=== PATIENT | female | born 1985 | race Caucasian/White ===

== ENCOUNTER 2017-12-04 19:37 | Emergency (ER) | payer MEDICAID, SELFPAY ==
[2017-12-04 19:38] VITALS: BP 148/83; PULSE 87; RESP 18; TEMP 36.4; O2SAT 98; BMI 42.3
--- NOTE | 2017-12-04 19:53 | ED.VISSUMM ---
- ER Visit Summary Date of Service: 12/04/17 Chief Complaint: Flank pain History of Present Illness: The patient is a 31 F with frequent urinary tract infections presents with flank pain that started yesterday. She does have some urinary symptoms, dysuria and frequency. This feels like every urine infection that she has had in the past. No fever or chills. She has no abdominal pain. Physical Examination: Not appear in acute distress. She appears well and nontoxic she appears comfortable. Moist mucous membranes, no obvious facial deformity No C-spine tenderness supple neck. Regular rate and rhythm without any obvious murmurs Clear lungs bilaterally speaking in full sentences without any obvious respiratory distress Abdomen soft and nontender no guarding or rebound. She does have some CVA tenderness. Moves all extremities without any difficulty or pain. Skin does not show any obvious rashes or lesions, no trauma. Alert oriented ?3 with no gross focal deficit Emergency Department Course and Treatment: Patient has a cloudy urine. I do not see any blood. There may be microscopic hematuria however her signs and symptoms as well as clinical presentation point towards a urinary tract infection with possible renal involvement. I will treat as a pyelonephritis. She appears well and nontoxic. She is not writhing in pain and does not have significant pain therefore I will not do a CT for nephrolithiasis. She is still young and at this time I believe it is reasonable to wait to see if her symptoms improve before we do any kind of CAT scan. I will treat her empirically. I will send for culture and if she has fever chills or gets any worse needs to return right away. She understands this. At this time she has had this multiple times and feels just the same thus I am reasonably confident that outpatient treatment with no further workup is prudent and safe. Discharge stable condition Impression: [Urinary tract infection] This note was generated with [employer] dictation software. It may contain incorrect words, spelling, and punctuation that were not noted in review of the chart prior to signing ED Disposition - Plan for ED Patient: Disposition: Home or Assisted Living Chief Complaint: Flank Pain Instructions: ED Kidney Infec Female Prescriptions: Hydrocodone/Acetaminophen [[place] 5-325 Tablet] 1 - 2 ea PO 4X/DAY PRN PRN 3 Days #6 tab PRN Reason: Pain Smz/Tmp Ds [Bactrim Ds] 1 tab PO BID #14 tab Referrals: Magalis Curtis MD [Primary Care Provider] - 2 Days
[2017-12-04] MEDS: HYDROcodone Bitartrate/Apap 5/325 Tablet PO (19:57)
[2017-12-04] MEDS: Smz/Tmp Ds Tablet 1 TABLET PO (19:57)
[2017-12-04 19:58] VITALS: BP 140/75; PULSE 85; RESP 16; O2SAT 99
== END 2017-12-04 20:24 | disposition home or self-care (01) ==
PROVIDERS: Emergency Provider Emergency Medicine; Family Provider Internal Medicine; PCP Internal Medicine
DX: N12 Tubulo-interstitial nephritis, not specified as acute or chronic (principal); B96.89 Other specified bacterial agents as the cause of diseases classified elsewhere; Z87.440 Personal history of urinary (tract) infections; Z72.0 Tobacco use
CPT/HCPCS: 87086; 87088; 87186; 99283

== ENCOUNTER 2017-12-06 03:02 | Emergency (ER) | payer MEDICAID, SELFPAY ==
[2017-12-06 03:03] VITALS: PULSE 114; RESP 18; O2SAT 94
[2017-12-06 03:04] VITALS: BP 152/107; PULSE 91; RESP 18; TEMP 36.6; O2SAT 94; BMI 42.4
--- NOTE | 2017-12-06 03:17 | CT_ITS ---
STUDY: CT ABDOMEN AND PELVIS WITHOUT CONTRAST REASON FOR EXAM: Female, 31 years old. Kidney infection diagnosed yesterday on antibiotic, increased pain. History of cholecystectomy, appendectomy, hysterectomy, cervical cancer, bladder and urethral reconstruction RADIATION DOSAGE (If Supplied By Facility): CTDIvol = ( 22.42 ) mGy, DLP = ( 1114.48 ) mGycm TECHNIQUE: Transaxial 2.5 mm images were obtained from the dome of the diaphragm to the symphysis pubis without oral contrast, and without intravenous contrast. Sagittal and coronal images were reconstructed. This examination is limited for the evaluation of gastrointestinal, solid organs and vascular structures due to the lack of intravenous and oral contrast. There is obesity, the entirety of soft tissue is not imaged. Individualized dose optimization techniques were used for this CT. COMPARISON: CT abdomen pelvis 04/10/2017. 11/07/2016. 05/04/2016. FINDINGS: The visualized lung bases are unremarkable. The visualized portions of the heart are within normal limits. Normal liver. Stable enlargement right hepatic lobe 19.7 cm. There are surgical clips in the gallbladder fossa consistent with a prior cholecystectomy. Normal spleen. Punctate stable calcification along the pancreas head with otherwise normal pancreas. Normal bilateral adrenal glands. Normal right kidney. Normal left kidney. There is no obstructive uropathy, obstructive renal or ureteral calculi. Normal visualized stomach. Normal small intestine. Normal colon. There are surgical clips in the region of the appendix consistent with a prior appendectomy. Normal abdominal aorta. Normal inferior vena cava. Normal retroperitoneum. Decompressed urinary bladder. There is absence of the uterus consistent with a prior hysterectomy. There is low attenuation changes within the right adnexa, largest measures 2.2 x 2.4 x 2.3 cm. Left adnexa is not visualized. There is a stable tiny umbilical hernia containing fat. Normal osseous structures. CT/Abdomen/Pelvis without Cont IMPRESSION: There is no acute abdomen and pelvic pathology. There is no obstructive uropathy, obstructive renal or ureteral calculi. Right ovarian follicles decreased in size since previous exam. Other nonacute findings as outlined above. Electronically Signed: Iman Arndt MD at 4:25 EDT , Service support ,
[2017-12-06] MEDS: Ondansetron 4 MG/2 ML Vial IV (03:47)
[2017-12-06] MEDS: Morphine 4 MG/ML Syringe IV (03:47)
[2017-12-06] MEDS: 0.9% Normal Saline 1,000 ML 999 ML IV (03:47)
[2017-12-06 03:48] LABS: Bacteria 0 SEEN /hpf (None Seen); Mucous, Urine 0 SEEN /hpf (<or=2+); Red Blood Cells-Urine 0 SEEN /hpf (0-5); Squamous Epithelial Cells - UA 0 SEEN /hpf (5-10)
--- NOTE | 2017-12-06 03:49 | ED.VIS.GEN ---
History of Present Illness Chief Complaint: Flank Pain Informant: Patient Onset: Days - 2 Context: Gradual Onset Timing: Continuous, Waxes and wanes Quality: ache Location: R flank Current Severity: Moderate Maximum Severity: Severe Associated Symptoms: N/V, feels hot Narrative: Patient arrives by EMS because of intractable right-sided flank pain and lots of vomiting. She was seen here yesterday for the same pain, she had a hysterectomy that was complicated by a bladder/right ureter injury, the ureter had to be reconstructed onto her bladder him a she states. This occurred in 2014, and ever since she has had recurrent right-sided urinary tract infections that sometimes are in the upper urinary tract. She states these of the same symptoms she has had with prior infections. However, she has developed significantly worse, but similar, pain, as well as vomiting to the point of having trouble keeping the antibiotics down. She has had 2 doses of the Bactrim. No other new symptoms. - Past Medical History (1) Status post laparoscopic hysterectomy Status: Chronic (2) Ureter injury Status: Resolved Past Medical History - Allergies and Home Meds Allergies/Adverse Reactions: Allergies oxycodone HCl [From Percocet] Adverse Reaction (Verified 12/04/17 19:37) Nausea can take tylenol, Primary Care Physician: Magalis Curtis MD [Primary Care Provider] - 1-2 Days if not improving Surgical History: appendectomy, cholecystectomy, hysterectomy Smoking Status: Current every day smoker Drugs: None - Family History Maternal Family History: Reports: No pertinent history Paternal Family History: Reports: No pertinent history Review of Systems All systems negative except as indicated General: Reports: Chills, Malaise Cardiovascular: Denies: Chest pain Respiratory: Denies: Dyspnea, Cough Gastrointestinal: Reports: Abdominal pain, Nausea, Vomiting. Denies: Diarrhea, Hematochezia Genitourinary: Reports: Frequency. Denies: Dysuria, Hematuria Musculoskeletal: Reports: Back pain. Denies: Myalgias, Arthralgias, Neck pain, Extremity Pain Skin: Denies: Rash Neurological: Denies: Headache, Weakness, Parasthesia Physical Exam Vital Signs/Narrative: Vital Signs Temp Pulse Resp BP Pulse Ox 12/06/17 03:04 97.8 F 91 18 152/107 H 94 12/06/17 03:03 114 H 18 94 Inital Vital Signs reviewed: Yes General: Well nourished, Well developed, - - Well-appearing, NAD Head: Normocephalic, Atraumatic Eyes: Perrl, EOMI ENT: Moist mucous membranes, No rhinorrhea Neck: Supple, Nontender Cardiovascular: Regular rate, Regular rhythm, No murmurs. Negative for: Tachycardia Respiratory: No distress, CTA bilaterally, Chest nontender Abdomen: Soft, Nontender, Nondistended, Normal bowel sounds Back: Normal Inspection, CVA tenderness - Right. Negative on left.. Negative for: Spinal tenderness Extremities: Nontender, No edema Skin: Normal color, No rash Neurological: Alert, Oriented x3, Cranial nerves II-XII grossly intact, Normal Strength, Normal Sensation Psychological: Normal affect Diagnostic/Tx/Re-eval Impressions Abdomen/Pelvis CT 12/06/17 03:17 IMPRESSION: There is no acute abdomen and pelvic pathology. There is no obstructive uropathy, obstructive renal or ureteral calculi. Right ovarian follicles decreased in size since previous exam. Other nonacute findings as outlined above. Electronically Signed: Iman Arndt MD at 4:25 EDT , Service support , 12/06/17 03:17 Abdomen/Pelvis without Cont [CT] Stat Laboratory Results 12/06/17 12/06/17 12/06/17 Range/Units 03:45 03:45 03:45 WBC 14.6 H (4.4-11.0) K/mm3 RBC 4.40 (4.2-5.4) M/mm3 Hgb 13.0 (12.0-15.0) g/dl Hct 39.8 (37-47) % MCV 90.5 (81-99) fL MCH 29.5 (27.0-32.0) pg MCHC 32.7 (32-36) g/gl RDW 13.7 (11.6-14.6) % RDW Differential 45.4 H (35.1-43.9) fl Plt Count 264 (150-450) K/mm3 MPV 8.9 (6.2-12.0) fl Immature Gran % (Auto) 0.400 (0.0-0.9) % Neut % (Auto) 63.2 (47-70) % Lymph % (Auto) 30.4 (19-41) % [place] % (Auto) 4.7 (0-10) % Eos % (Auto) 1.1 (0-5) % Baso % (Auto) 0.2 (0-1) % Absolute Neuts (auto) 9.2 H (2.0-7.7) X10^3/uL Absolute Lymphs (auto) 4.43 (0.83-4.51) X10^3/ul Sodium 144 (136-145) mmol/L Potassium 3.5 (3.5-5.1) mmol/L Chloride 105 (98-107) mmol/L Carbon Dioxide 27.0 (21.0-32.0) mmol/L Anion Gap 12 (5-15) BUN 11 (7-18) mg/dL Creatinine 0.73 (0.55-1.02) mg/dL Estim Creat Clear Calc 94.65 ml/min Est GFR (MDRD) Af Amer 117 (>60) mL/min Est GFR (MDRD) Non-Af 97 (>60) mL/min BUN/Creatinine Ratio 15.0 (10-20) RATIO Glucose 107 H (74-106) mg/dL Calcium 8.9 (8.5-10.1) mg/dL Urine Color Yellow (Yellow) Urine Clarity Clear (Clear) Urine pH 6.5 (5.0 - 8.0) Ur Specific [place] 1.015 (1.002-1.030) Urine Protein Negative (Negative) mg/dl Urine Glucose (UA) Normal (Normal) mg/dl Urine Ketones Negative (Negative) mg/dl Urine Occult Blood 10 H (Negative) /ul Urine Nitrite Negative (Negative) Urine Bilirubin Negative (Negative) mg/dL Urine Urobilinogen Normal (Normal) mg/dl Ur Leukocyte Esterase 25 H (Negative) /ul Urine RBC 0 SEEN (0-5) /hpf Urine WBC 0-5 SEEN (0-5) /hpf Ur Squamous Epith Cells 0 SEEN (5-10) /hpf Urine Bacteria 0 SEEN (None Seen) /hpf Urine Mucus 0 SEEN (<or=2+) /hpf - Medical Decision Making She was treated empirically at her recent visit here without workup, given her history. Given the uncontrollable symptoms now, CT flank, urinalysis, basic labs obtained in addition to giving the patient IV fluids, Zofran, morphine. Urinalysis only shows 25 leukocyte esterase and 0-5 white blood cells. On discussing this with the patient, she states that her urine looks a lot better today than it did yesterday, it was dark yesterday. It is conceivable that she is starting to see improvement after 24 hours of antibiotics. She does have a leukocytosis which can be indicative of infection, although certainly not specific for that. Her CT is essentially unremarkable, showing no perinephric stranding or obstructive uropathy/hydronephrosis. After morphine, Zofran, IV fluid she is feeling much better. She is tolerating oral fluids. Will prescribe her a short course of analgesics and Zofran and advise that she continue the antibiotic until completed. She is comfortable with that plan. ED Disposition - Plan for ED Patient: Disposition: Home or Assisted Living Chief Complaint: Flank Pain Diagnosis: UTI (urinary tract infection), Acute right flank pain Instructions: ED Kidney Infec Female Prescriptions: Hydrocodone Bitart/[place]ap 5-325 [[place] 5MG-325MG] 1 tab PO Q4H PRN PRN 2 Days #10 tab PRN Reason: Pain Ondansetron [Zofran Odt] 8 mg PO Q8H PRN PRN #15 tab PRN Reason: Nausea/Vomiting Referrals: Magalis Curtis MD [Primary Care Provider] - 1-2 Days if not improving
[2017-12-06 03:54] LABS: Color, Urine Yellow (Yellow); Glucose, Dipstick Normal (Normal); Ketone-Dipstick Negative (Negative); Leukocyte Esterase-Dipstick 25 /ul (Negative); Nitrite-Dipstick Negative (Negative); Occult Blood-Urine 10 /ul (Negative); Protein-Dipstick Negative (Negative); Specific Gravity, Urine 1.015 (1.002-1.030); Urine Bilirubin Dipstick Negative (Negative); Urine Clarity Clear (Clear); Urine Urobilinogen Normal (Normal); Urine pH 6.5 (5.0 - 8.0)
[2017-12-06 04:02] LABS: White Blood Cells 0-5 SEEN /hpf (0-5)
[2017-12-06 04:05] LABS: Anion Gap 12 (5-15); BUN 11 mg/dL (7-18); Calcium,Total 8.9 mg/dL (8.5-10.1); Chloride 105 mmol/L (98-107); Creatinine, Serum 0.73 mg/dL (0.55-1.02); EST Glomerular Filtration Rate 97 mL/min (>60); Est Glom Filt Rate - Afr Amer 117 mL/min (>60); Estimated Creatinine Clearance 94.65 ml/min; Glucose 107 mg/dL (74-106); Potassium 3.5 mmol/L (3.5-5.1); Sodium Level 144 mmol/L (136-145)
[2017-12-06 04:06] LABS: Absolute Lymphocyte Count 4.43 X10^3/ul (0.83-4.51); Absolute Neutrophil Count 9.2 X10^3/uL (2.0-7.7); Basophil# 0.03 X10^3/uL; Basophil% 0.2 % (0-1); Eosinophil# 0.16 X10^3/uL; Eosinophils% 1.1 % (0-5); Hematocrit 39.8 % (37-47); Lymphocyte # 4.43 X10^3/ul (4.0); Lymphocyte % 30.4 % (19-41); Mean Corp Hgb Conc 32.7 g/gl (32-36); Mean Corpuscular Hgb 29.5 pg (27.0-32.0); Mean Corpuscular Volume 90.5 fL (81-99); Mean Platelet Vol. 8.9 fl (6.2-12.0); Monocyte# 0.68 X10^3/uL; Monocyte% 4.7 % (0-10); Neutrophil # 9.19 X10^3/uL (2.7-7.7); Neutrophil % 63.2 % (47-70); Platelet Count 264 K/mm3 (150-450); RBC Distribution Width CV 13.7 % (11.6-14.6); RBC Distribution Width SD 45.4 fl (35.1-43.9); White Blood Count 14.6 K/mm3 (4.4-11.0)
[2017-12-06 04:09] LABS: Differential Indicated SCAN CRITERIA MET; POSITIVE COUNT NO; POSITIVE DIFFERENTIAL NO; POSITIVE MORPHOLOGY YES
[2017-12-06 04:42] VITALS: BP 131/75; PULSE 71; RESP 16; O2SAT 97
== END 2017-12-06 04:56 | disposition home or self-care (01) ==
PROVIDERS: Emergency Provider Emergency Medicine; Family Provider Internal Medicine; PCP Internal Medicine
DX: N39.0 Urinary tract infection, site not specified (principal); B96.89 Other specified bacterial agents as the cause of diseases classified elsewhere; Z87.440 Personal history of urinary (tract) infections
CPT/HCPCS: 74176; 80048; 81001; 85025; 96361; 96374; 96375; 99285; J2405

== ENCOUNTER 2019-04-24 10:34 | Emergency (ER) | payer MEDICAID, SELFPAY ==
[2019-04-24 10:36] VITALS: BP 123/79; PULSE 108; RESP 18; TEMP 36.8; O2SAT 99; BMI 40.1
--- NOTE | 2019-04-24 10:53 | ED.VISSUMM ---
- ER Visit Summary Date of Service: 04/24/19 Chief Complaint: Dental pain and caries History of Present Illness: The patient is a 33 F history of anxiety, depression and endometriosis. Patient has very poor dentition. Patient states developing on Tuesday. Saw an urgent care at the [facility] with started on penicillin. And now having nausea and vomiting. Physical Examination: Young female no acute distress vital signs stable afebrile. Did not look septic or toxic. H EENT exam upper dentition are non-. Lower dentition are severely decayed. Each tooth is decayed and has multiple caries. Eroded down almost the gumline. Multiple missing lower teeth. No abscess. No trismus. The teeth are tender. There is no facial swelling. The floor the mouth is nontender or swollen. Posterior pharynx unremarkable no swelling. No palpable swallowing or breathing. Neck nontender. No lymphadenopathy. Lungs clear to auscultation bilaterally. Heart regular rhythm no murmur. Abdomen soft nontender. Normal bowel sounds no peritoneal signs. Remedies moves all 4. Neurovascular intact no edema. Neurologically she is awake and alert. Test Results: None Emergency Department Course and Treatment: Patient is already on antibiotic penicillin. She is to follow-up with a dentist. She will given Zofran for nausea. There is no signs currently of an abscess nor any facial swelling or any Israel's angina. Treatment Plan: Antibiotic. Follow-up with a dentist soon as possible. Disposition: Discharge Impression: Dental pain and dental caries Gingivitis This note was generated with [employer] dictation software. It may contain incorrect words, spelling, and punctuation that were not noted in review of the chart prior to signing ED Disposition - Plan for ED Patient: Referrals: Magalis Curtis MD [Primary Care Provider] -
--- NOTE | 2019-04-24 10:57 | ED.DEP ---
ED Disposition - Plan for ED Patient: Disposition: Home or Assisted Living Instructions: Dental Pain, Dental Cavity Prescriptions: Ondansetron [Zofran Odt] 4 mg PO Q8H PRN PRN #14 tab PRN Reason: zofran Prescription Printed
[2019-04-24] MEDS: Ondansetron ODT 4 MG Tablet PO (11:20)
== END 2019-04-24 11:26 | disposition home or self-care (01) ==
PROVIDERS: Emergency Provider Emergency Medicine; PCP Internal Medicine
DX: K05.10 Chronic gingivitis, plaque induced (principal); K02.9 Dental caries, unspecified; R11.2 Nausea with vomiting, unspecified; F32.9 Major depressive disorder, single episode, unspecified; F41.9 Anxiety disorder, unspecified; Z72.0 Tobacco use; Z79.899 Other long term (current) drug therapy
CPT/HCPCS: 99283

== ENCOUNTER 2019-10-23 18:37 | Emergency (ER) | payer MEDICAID, SELFPAY ==
[2019-10-23 18:38] VITALS: BP 105/50; PULSE 103; RESP 18; TEMP 36.7; O2SAT 98; BMI 41.1
--- NOTE | 2019-10-23 19:05 | CT_ITS ---
STUDY: CT ABDOMEN AND PELVIS WITHOUT CONTRAST REASON FOR EXAM: Female, 33 years old. RIGHT FLANK PAIN RADIATION DOSAGE (If Supplied By Facility): CTDIvol = ( 21.74 ) mGy, DLP = ( 1048.02 ) mGycm TECHNIQUE: Transaxial images were obtained from the dome of the diaphragm to the symphysis pubis without oral contrast, and without intravenous contrast. Sagittal and coronal images were reconstructed. Individualized dose optimization techniques were used for this CT. COMPARISON: 12-06-17. FINDINGS: The visualized lung bases are unremarkable. The visualized portions of the heart are within normal limits. There is decreased attenuation of the liver consistent with steatosis. There is hepatomegaly. There are surgical clips in the gallbladder fossa consistent with a prior cholecystectomy. Normal spleen. Normal pancreas. Normal bilateral adrenal glands. Normal right kidney. Normal left kidney. Evaluation of the GI tract is limited by absence of oral contrast. Cannot exclude stomach wall thickening. No dilated loops of bowel or evidence for obstruction. Cannot exclude segmental thickening of the campa of the small or large bowel. Cannot exclude enteritis or colitis. Moderate diffuse fecal retention. There has been appendectomy. Normal abdominal aorta. Normal inferior vena cava. Normal retroperitoneum. Normal urinary bladder. There is absence of the uterus consistent with a prior hysterectomy. Normal abdominal wall. Normal osseous structures. CT/Abdomen/Pelvis without Cont IMPRESSION: No definite acute or significant abnormality seen. Electronically Signed: Stone Gomez MD at 20:01 EDT , Service support ,
[2019-10-23] MEDS: Morphine 4 MG/ML Syringe IV (19:29)
[2019-10-23] MEDS: 0.9% Normal Saline 1,000 ML 250 ML IV (19:29)
[2019-10-23] MEDS: Ondansetron 4 MG/2 ML Vial IV (19:29)
[2019-10-23 19:33] LABS: Bacteria 0 SEEN /hpf (None Seen); Red Blood Cells-Urine 0 SEEN /hpf (0-5)
[2019-10-23 19:39] LABS: Absolute Lymphocyte Count 4.22 X10^3/uL (0.83-4.51); Absolute Neutrophil Count 11.2 X10^3/uL (2.0-7.7); Basophil# 0.08 X10^3/uL; Basophil% 0.5 % (0-1); Eosinophil# 0.23 X10^3/uL; Eosinophils% 1.4 % (0-5); Hematocrit 39.9 % (37-47); Hemoglobin 13.2 g/dL (12.0-15.0); Lymphocyte # 4.22 X10^3/ul (4.0); Lymphocyte % 25.3 % (19-41); Mean Corp Hgb Conc 33.1 g/dL (32-36); Mean Corpuscular Hgb 29.1 pg (27.0-32.0); Mean Corpuscular Volume 87.9 fL (81-99); Mean Platelet Vol. 9.1 fl (6.2-12.0); Monocyte# 0.81 X10^3/uL; Monocyte% 4.9 % (0-10); NRBC Flagged by Analyzer 0 % (0-5); Neutrophil # 11.16 X10^3/uL (2.7-7.7); Neutrophil % 66.8 % (47-70); Platelet Count 389 K/mm3 (150-450); RBC Distribution Width SD 45.1 fl (35.1-43.9); Red Blood Count 4.54 M/mm3 (4.2-5.4); White Blood Count 16.7 K/mm3 (4.4-11.0)
[2019-10-23 19:40] LABS: Color, Urine Yellow (Yellow); Glucose, Dipstick Normal (Normal); Ketone-Dipstick 5 mg/dl (Negative); Leukocyte Esterase-Dipstick 25 /ul (Negative); Nitrite-Dipstick Negative (Negative); Occult Blood-Urine 10 /ul (Negative); Protein-Dipstick 30 mg/dl (Negative); Specific Gravity, Urine 1.025 (1.002-1.030); Urine Bilirubin Dipstick Negative (Negative); Urine Clarity Clear (Clear); Urine Urobilinogen 1 mg/dl (Normal)
[2019-10-23 19:48] LABS: Mucous, Urine 3+ /hpf (<or=2+); Squamous Epithelial Cells - UA 5-10 SEEN /hpf (5-10); White Blood Cells 0-5 SEEN /hpf (0-5)
[2019-10-23 19:49] LABS: Anion Gap 7 (5-15); BUN 10 mg/dL (7-18); BUN/Creat Ratio 15.5 RATIO (10-20); Chloride 107 mmol/L (98-107); Creatinine, Serum 0.65 mg/dL (0.55-1.02); EST Glomerular Filtration Rate 110 mL/min (>60); Est Glom Filt Rate - Afr Amer 134 mL/min (>60); Estimated Creatinine Clearance 104.32 ml/min; Glucose 105 mg/dL (74-106); Potassium 3.1 mmol/L (3.5-5.1); Sodium Level 141 mmol/L (136-145)
--- NOTE | 2019-10-23 20:05 | ED.VIS.GEN ---
History of Present Illness Chief Complaint: Flank Pain Informant: Patient Onset: Days - Set 3 days ago Context: Sudden Onset Timing: Continuous, Waxes and wanes Quality: Col[place] Location: Right flank radiating anteriorly Current Severity: Mild Maximum Severity: Severe Worsened by: Question movement Relieved by: Nothing Associated Symptoms: Nausea Narrative: Patient is a 33-year-old woman with complicated past surgical history with complications due to ureteral and bladder injury. She presents with flank pain. She has history of pyelonephritis with sepsis, ureteral stenosis with hydronephrosis. There may be a remote history of renal calculus. She denies vomiting or diarrhea. She does report urinary symptoms of frequency and urgency. She also reports hematuria. She denies fever, chills or night sweats. She denies HEENT symptoms or upper respiratory symptoms. She denies chest pain. She denies history of trauma. She has not noted a rash or any lesions. She denies myalgias or arthralgias. Prior similar symptoms: No Recent Illness/Hospitalization: No - Past Medical History (1) Abdominal abscess Status: Acute (2) Status post laparoscopic hysterectomy Status: Chronic (3) Ureter injury Status: Resolved Past Medical History - Allergies and Home Meds Allergies/Adverse Reactions: Allergies oxycodone HCl [From Percocet] Adverse Reaction (Verified 10/23/19 18:38) Nausea can take tylenol, Primary Care Physician: Magalis Curtis MD [Primary Care Provider] - Prior records reviewed: Yes Surgical History: appendectomy, cholecystectomy, hysterectomy Lives: Alone Smoking Status: Current every day smoker Alcohol: Rare Drugs: None - Family History Maternal Family History: Reports: No pertinent history Paternal Family History: Reports: No pertinent history Review of Systems General: Reports: Chills. Denies: Fever, Malaise, Subjective, Sweats Eyes: Denies: Visual changes - bilaterally, Blurred Vision - bilaterally ENT: Denies: Bilateral ear pain, Right ear pain, Rhinorrhea Cardiovascular: Denies: Chest pain, Palpitations Respiratory: Denies: Dyspnea, Cough, Dyspnea on exertion Gastrointestinal: Reports: Abdominal pain, Nausea. Denies: Vomiting, Diarrhea, Constipation, Melena, Hematochezia Genitourinary: Reports: Hematuria, Frequency. Denies: Dysuria Musculoskeletal: Reports: Back pain. Denies: Myalgias, Arthralgias, Neck pain, Swelling, Extremity Pain Skin: Denies: Rash, Wounds Neurological: Denies: Headache, Weakness Psych: Reports: Depression Endocrine: Denies: Polyuria, Polydipsia Hematologic: Denies: Easy bruising, Easy bleeding Physical Exam Vital Signs/Narrative: Vital Signs Temp Pulse Resp BP Pulse Ox 10/23/19 18:38 98.1 F 103 H 18 105/50 L 98 Inital Vital Signs reviewed: Yes General: Well nourished, Well developed, Obese, - - Patient does not appear well Head: Normocephalic, Atraumatic Eyes: Perrl, EOMI. Negative for: Pale conjunctiva, Scleral icterus ENT: Moist mucous membranes, No rhinorrhea, TM's clear Neck: Supple, Nontender, No lymphadenopathy, No JVD Cardiovascular: Regular rhythm, No murmurs, Normal S1, Tachycardia Respiratory: No distress, CTA bilaterally, Chest nontender Abdomen: Soft, Nondistended, No masses, Tender, Hypoactive bowel sounds. Negative for: Nontender, Normal bowel sounds, Rebound tenderness, Hyperactive bowel sounds, Hepatomegaly, Splenomegaly, Mass, Pulsatile mass, Ventral hernia, Inguinal hernia, Umbilical hernia Rectal: Deferred Back: Nontender, Normal Inspection, CVA tenderness - Right side Extremities: Nontender, No edema Skin: Normal color, No rash Neurological: Alert, Oriented x3, Cranial nerves II-XII grossly intact, Normal Strength, Normal Sensation Psychological: Normal affect, Normal Mood Diagnostic/Tx/Re-eval Impressions Abdomen/Pelvis CT 10/23/19 20:11 IMPRESSION: After the administration of IV contrast, no additional findings or other abnormalities relative to the exam of one hour earlier. Electronically Signed: Stone Gomez MD at 21:04 EDT , Service support , 10/23/19 19:05 Abdomen/Pelvis without Cont [CT] Stat 10/23/19 20:11 Abdomen/Pelvis W IV Cont ONLY [CT] Stat Laboratory Results 10/23/19 10/23/19 10/23/19 18:54 19:22 19:22 WBC 16.7 H RBC 4.54 Hgb 13.2 Hct 39.9 MCV 87.9 MCH 29.1 MCHC 33.1 RDW Std Deviation 45.1 H RDW Coeff of [place] 14.0 Plt Count 389 MPV 9.1 Immature Gran % (Auto) 1.100 H Neut % (Auto) 66.8 Lymph % (Auto) 25.3 [place] % (Auto) 4.9 Eos % (Auto) 1.4 Baso % (Auto) 0.5 Absolute Neuts (auto) 11.2 H Absolute Lymphs (auto) 4.22 Nucleated RBC % 0 Sodium 141 Potassium 3.1 L Chloride 107 Carbon Dioxide 27.0 Anion Gap 7 BUN 10 Creatinine 0.65 Estim Creat Clear Calc 104.32 Est GFR (MDRD) Af Amer 134 Est GFR (MDRD) Non-Af 110 BUN/Creatinine Ratio 15.5 Glucose 105 Calcium 9.0 Urine Color Yellow Urine Clarity Clear Urine pH 5.0 Ur Specific [place] 1.025 Urine Protein 30 H Urine Glucose (UA) Normal Urine Ketones 5 H Urine Occult Blood 10 H Urine Nitrite Negative Urine Bilirubin Negative Urine Urobilinogen 1 H Ur Leukocyte Esterase 25 H Urine RBC 0 SEEN Urine WBC 0-5 SEEN Ur Squamous Epith Cells 5-10 SEEN Urine Bacteria 0 SEEN Urine Mucus 3+ Because of the elevated white count prior history of abdominal abscess, kidney function etc. CT with IV contrast was obtained. There is no change in initial read and no evidence of inflammatory or infectious pathology. The cause of patient's elevated white count is unknown. Blood cultures were obtained. She was instructed to take Tylenol for pain. - Medical Decision Making Differential diagnosis included obstructing ureteral stone, urinary tract infection, pyelonephritis. Opiate labs and imaging was obtained. She was medicated with IV Zofran and IV morphine. ED Disposition - Plan for ED Patient: Disposition: Home or Assisted Living Diagnosis: Right-sided abdominal pain of unknown cause, Leukocytosis, unspecified Instructions: ED Abdominal Pain Unkn Cause Fem Referrals: Magalis Curtis MD [Primary Care Provider] - 3-5 Days if not improving
--- NOTE | 2019-10-23 20:11 | CT_ITS ---
STUDY: CT ABDOMEN AND PELVIS WITHOUT CONTRAST REASON FOR EXAM: Female, 33 years old. RIGHT SIDED ABD PAIN, LEUKOCYTOSIS RADIATION DOSAGE (If Supplied By Facility): CTDIvol = ( 19.62 ) mGy, DLP = ( 2701.18 ) mGycm TECHNIQUE: Transaxial images were obtained from the dome of the diaphragm to the symphysis pubis without oral contrast, and without intravenous contrast. Sagittal and coronal images were reconstructed. Individualized dose optimization techniques were used for this CT. COMPARISON: Compared to the noncontrast study from earlier today at 7:45 PM. FINDINGS: After the administration of IV contrast, no additional changes or findings to the previous report. No additional abnormalities are seen. Again noted is fatty liver with hepatomegaly. Once again, evaluation of the GI tract is limited by the absence of oral contrast. CT/Abdomen/Pelvis W IV Cont ONLY IMPRESSION: After the administration of IV contrast, no additional findings or other abnormalities relative to the exam of one hour earlier. Electronically Signed: Stone Gomez MD at 21:04 EDT , Service support ,
[2019-10-23 22:18] VITALS: BP 115/57; PULSE 71; RESP 16; O2SAT 98
== END 2019-10-23 22:19 | disposition home or self-care (01) ==
PROVIDERS: Emergency Provider Emergency Medicine; PCP Internal Medicine
DX: R10.9 Unspecified abdominal pain (principal); D72.829 Elevated white blood cell count, unspecified; F17.200 Nicotine dependence, unspecified, uncomplicated
CPT/HCPCS: 74176; 74177; 80048; 81001; 85025; 87040; 96361; 96374; 96375; 99282; J7030; Q9967; J2405

== ENCOUNTER 2021-05-25 15:45 | Emergency (ER) | payer MEDICAID, SELFPAY ==
[2021-05-25 15:46] VITALS: BP 124/90; PULSE 81; RESP 18; TEMP 36.6; O2SAT 99; BMI 38.7
--- NOTE | 2021-05-25 16:51 | EX.ED.DYSGE1 ---
HPI History of Present Illness Chief Complaint: Complaint Detail of Chief Complaint: Right flank pain radiating anteriorly. Informant: patient and spouse/S.O. Onset/Context/Timing Onset: Today Context: Sudden Onset Timing: Continuous Quality: Colicky Location: Right flank radiating anteriorly Current Severity: Mild Maximum Severity: Moderate Worsened by: Nothing Relieved by: Pressure over the right flank area Associated Symptoms Associated Symptoms: Nausea Narrative Narrative: Patient is a 35-year-old woman with history of traumatic injury to her kidney and remote history of renal calculi. She was seen recently by me. Her work-up was unremarkable. She had a leukocytosis that time unknown etiology. Patient denies fever, chills night sweats. Patient does report nausea without vomiting diarrhea. Patient denies respiratory symptoms. Patient denies cardiac symptoms. Patient denies intolerance to greasy or fried foods. Patient denies frequency, urgency or hematuria. Patient states she goes small amounts and feels she does not void completely. She does report discomfort with urination. She denies vaginal bleeding. She denies vaginal discharge. Prior similar symptoms: Yes Recent Illness/Hospitalization: No PFSH PFSH Medical History (Updated 05/25/21 @ 20:[address] Salazar Cabrera MD) Abdominal abscess Home Medications Venlafaxine Xr [Effexor Xr] 75 mg PO DAILY 09/17/14 [History Last Taken 03/05/15] alprazolam 0.5 mg PO BID PRN 09/17/14 [History Last Taken 07/05/15 09:00] desvenlafaxine succinate 50 mg PO DAILY 05/25/21 [History Last Taken Unknown] hydrocodone-acetaminophen 1 tab PO Q6H PRN PRN 3 Days #10 tablet 05/25/21 [Rx Last Taken Unknown] sulfamethoxazole-trimethoprim 1 tab PO BID #20 tablet 05/25/21 [Rx Last Taken Unknown] Allergy/AdvReac Type Severity Reaction Status Date / Time oxycodone HCl [From Percocet] AdvReac Nausea Verified 05/25/21 15:51 Surgical History (Updated 05/25/21 @ 17:28 by Jocy Swain) H/O: hysterectomy Social History (Updated 05/25/21 @ 16:[address] Salazar Cabrera MD) household members: significant other Smoking Status: Current every day smoker tobacco type: cigarettes substance use type: does not use ROS ROS ED Constitutional Constitutional ED: Denies chills, fever(s), subjective, sweats or weight loss Eyes Eyes: Denies blurry vision, change in vision or diplopia ENT ENT ED: Denies ear pain, rhinorrhea or sore throat Cardiovascular Cardiovascular: Denies chest pain, palpitations or racing heartbeat Respiratory/Chest Respiratory/Chest: Denies cough, dyspnea, dyspnea on exertion or sputum Gastrointestinal Gastrointestinal: Reports abdominal pain and nausea; Denies constipation, diarrhea or vomiting Genitourinary Genitourinary ED: Reports dysuria; Denies hematuria or urinary frequency Musculoskeletal Musculoskeletal: Reports back pain; Denies arthralgias, myalgias or neck pain Integumentary Denies abscess or rash Neurologic Neurologic: Denies headache(s), paresthesias or weakness Endocrine Endocrinology: Denies polydipsia, polyphagia or polyuria EXAM Physical Exam Const Vital Signs: 05/25/21 15:46 05/25/21 17:31 Temperature 97.8 F Temperature Source Temporal Pulse Rate 81 90 Respiratory Rate 18 16 Blood Pressure 124/90 H 119/63 Blood Pressure Mean 101 81 Pulse Ox 99 97 Oxygen Delivery Method Room Air Room Air Positive well nourished, well developed and obese General Appearance ED: well developed; Negative for cyanotic, diaphoretic, NAD or pallor Nutritional Appearance: obese HEENT Reports TM's clear and moist mucous membranes HEENT Narrative: Posterior pharynx out erythema or exudate. Negative for trauma or tenderness Tympanic Membrane ED: Yes TM's clear Eyes PERRL and EOMs intact bilaterally General Eye ED: Negative for pale conjunctiva or scleral icterus Neck no lymphadenopathy, supple and no JVD General: Negative for tenderness Resp normal respiratory effort and clear to auscultation bilaterally Cardio regular rate, regular rhythm, S1 normal heart sound, S2 normal heart sound and no murmurs GI normal to inspection, nondistended, normoactive bowel sounds and non-distended; Negative for non-tender or hepatosplenomegaly GI Narrative: Negative Singh sign. Palpation: soft and tender other (Right) Back/Spine General Back: CVA tenderness right Extremity normal to inspection General Extremety ED: Negative for edema or tenderness General Extremity: Negative for edema Neuro oriented x3 and CN's II-XII intact bilaterally Sensorium / Orientation: alert Skin no rashes or lesions noted and no wounds General Skin Exam: Negative for jaundice or pallor MDM MDM MDM Narrative Medical decision making narrative: Patient with right flank pain this may be due to her chronic urologic issues versus infection versus stone. Will review my prior dictation and CAT scan results. Lab Data Attestation: I reviewed the patient's lab results. Lab results narrative: Urine is consistent with infection. Urine culture was sent. She was treated with Bactrim. She received her first dose in the emergency department. Since she has flank pain she has pyelonephritis and will treat with ciprofloxacin for 10 days. She has had elevated white counts in the past uncertain if this is due to infection or the fact that she has had what elevated white counts in the past with no known infectious cause. Labs: Laboratory Results - last 24 hr 05/25/21 05/25/21 05/25/21 16:50 16:50 17:15 WBC 17.1 H RBC 4.76 Hgb 14.2 Hct 42.2 MCV 88.7 MCH 29.8 MCHC 33.6 RDW Std Deviation 47.2 H RDW Coeff of [place] 14.5 Plt Count 321 MPV 9.1 Immature Gran % (Auto) 1.000 H Neut % (Auto) 71.3 H Lymph % (Auto) 20.9 [place] % (Auto) 5.4 Eos % (Auto) 1.0 Baso % (Auto) 0.4 Absolute Neuts (auto) 12.2 H Absolute Lymphs (auto) 3.57 Nucleated RBC % 0 Sodium Potassium Chloride Carbon Dioxide Anion Gap BUN Creatinine Estim Creat Clear Calc Est GFR (MDRD) Af Amer Est GFR (MDRD) Non-Af BUN/Creatinine Ratio Glucose Calcium Urine Color Yellow Urine Clarity Sl. Cloudy Urine pH 5.0 Ur Specific [place] 1.020 Urine Protein 30 H Urine Glucose (UA) Normal Urine Ketones Negative Urine Occult Blood 250 H Urine Nitrite Positive H Urine Bilirubin Negative Urine Urobilinogen Normal Ur Leukocyte Esterase 500 H Urine RBC 10-25 SEEN Urine WBC 50-100 SEEN Ur Squamous Epith Cells 0-5 SEEN Urine Bacteria 1+ Urine Mucus 0 SEEN Urine Test Negative 05/25/21 17:15 WBC RBC Hgb Hct MCV MCH MCHC RDW Std Deviation RDW Coeff of [place] Plt Count MPV Immature Gran % (Auto) Neut % (Auto) Lymph % (Auto) [place] % (Auto) Eos % (Auto) Baso % (Auto) Absolute Neuts (auto) Absolute Lymphs (auto) Nucleated RBC % Sodium 137 Potassium 3.7 Chloride 105 Carbon Dioxide 24.0 Anion Gap 8 BUN 7 Creatinine 0.54 L Estim Creat Clear Calc 123.17 Est GFR (MDRD) Af Amer 164 Est GFR (MDRD) Non-Af 136 BUN/Creatinine Ratio 13.1 Glucose 91 Calcium 8.8 Urine Color Urine Clarity Urine pH Ur Specific [place] Urine Protein Urine Glucose (UA) Urine Ketones Urine Occult Blood Urine Nitrite Urine Bilirubin Urine Urobilinogen Ur Leukocyte Esterase Urine RBC Urine WBC Ur Squamous Epith Cells Urine Bacteria Urine Mucus Urine Test Discharge Plan Triage Chief Complaint: Complaint ED Provider: Salazar Cabrera Dx/Rx/DC Orders Clinical Impression: Pyelonephritis of right kidney Instructions: ED Pyelonephritis, Female (Adult) Prescriptions: New hydrocodone-acetaminophen [hydrocodone-acetaminophen] 1 TABLET tablet 1 tab PO Q6H PRN PRN (Reason: Pain) 3 Days Qty: 10 RF: 0 sulfamethoxazole-trimethoprim [sulfamethoxazole-trimethoprim] 1 TABLET tablet 1 tab PO BID Qty: 20 RF: 0 No Action alprazolam 0.5 MG tablet 0.5 mg PO BID PRN (Reason: Anxiety) RF: 0 Venlafaxine Xr [Effexor Xr] 75 MG capsule 75 mg PO DAILY RF: 0 desvenlafaxine succinate 50 mg tablet extended release 24 hr 50 mg PO DAILY RF: 0 Primary Care Provider: Magalis Curtis Referrals: Magalis Curtis MD [Primary Care Provider] - 3-5 Days Disposition Disposition: Home, Self Care
[2021-05-25 17:03] LABS: Internal QC Validated? YES +Cl - CLEAR BKGD; Pregnancy, Urine Negative Negative
[2021-05-25] MEDS: Morphine 4 MG/ML Syringe IV (17:24)
[2021-05-25] MEDS: Ondansetron 4 MG/2 ML Vial IV (17:25)
[2021-05-25 17:31] VITALS: BP 119/63; PULSE 90; RESP 16; O2SAT 97
[2021-05-25 17:31] LABS: Absolute Lymphocyte Count 3.57 X10^3/uL (0.83-4.51); Absolute Neutrophil Count 12.2 X10^3/uL (2.0-7.7); Basophil# 0.06 X10^3/uL; Basophil% 0.4 % (0-1); Eosinophil# 0.17 X10^3/uL; Hematocrit 42.2 % (37-47); Hemoglobin 14.2 g/dL (12.0-15.0); Lymphocyte # 3.57 X10^3/ul (0.83-4.51); Lymphocyte % 20.9 % (19-41); Mean Corp Hgb Conc 33.6 g/dL (32-36); Mean Corpuscular Hgb 29.8 pg (27.0-32.0); Mean Corpuscular Volume 88.7 fL (81-99); Mean Platelet Vol. 9.1 fl (6.2-12.0); Monocyte# 0.92 X10^3/uL; Monocyte% 5.4 % (0-10); NRBC Flagged by Analyzer 0 % (0-5); Neutrophil # 12.19 X10^3/uL (2.7-7.7); Neutrophil % 71.3 % (47-70); Platelet Count 321 K/mm3 (150-450); RBC Distribution Width CV 14.5 % (11.6-14.6); RBC Distribution Width SD 47.2 fl (35.1-43.9); Red Blood Count 4.76 M/mm3 (4.2-5.4); White Blood Count 17.1 K/mm3 (4.4-11.0)
[2021-05-25 18:09] LABS: Anion Gap 8 (5-15); BUN 7 mg/dL (7-18); BUN/Creat Ratio 13.1 RATIO (10-20); Calcium,Total 8.8 mg/dL (8.5-10.1); Chloride 105 mmol/L (98-107); Creatinine, Serum 0.54 mg/dL (0.55-1.02); EST Glomerular Filtration Rate 136 mL/min (>60); Est Glom Filt Rate - Afr Amer 164 mL/min (>60); Estimated Creatinine Clearance 123.17 ml/min; Glucose 91 mg/dL (74-106); Potassium 3.7 mmol/L (3.5-5.1); Sodium Level 137 mmol/L (136-145)
[2021-05-25 18:40] LABS: Mucous, Urine 0 SEEN /hpf (<or=2+)
[2021-05-25 18:43] LABS: Color, Urine Yellow (Yellow); Glucose, Dipstick Normal (Normal); Ketone-Dipstick Negative (Negative); Leukocyte Esterase-Dipstick 500 /ul (Negative); Nitrite-Dipstick Positive (Negative); Occult Blood-Urine 250 /ul (Negative); Protein-Dipstick 30 mg/dl (Negative); Urine Bilirubin Dipstick Negative (Negative); Urine Clarity Sl. Cloudy (Clear); Urine Urobilinogen Normal (Normal)
[2021-05-25 18:50] LABS: White Blood Cells 50-100 SEEN /hpf (0-5)
[2021-05-25 18:51] LABS: Bacteria 1+ /hpf (None Seen); Red Blood Cells-Urine 10-25 SEEN /hpf (0-5); Squamous Epithelial Cells - UA 0-5 SEEN /hpf (5-10)
[2021-05-25] MEDS: Smz/Tmp Ds Tablet 1 TABLET PO (20:17)
== END 2021-05-25 20:22 | disposition home or self-care (01) ==
PROVIDERS: Emergency Provider Emergency Medicine; PCP Internal Medicine; Visit Provider Emergency Medicine
DX: N12 Tubulo-interstitial nephritis, not specified as acute or chronic (principal); F17.210 Nicotine dependence, cigarettes, uncomplicated; E66.9 Obesity, unspecified; Z79.899 Other long term (current) drug therapy
CPT/HCPCS: 80048; 81001; 81025; 85025; 87077; 87086; 87088; 87186; 96361; 96374; 96375; 99285; A4216; J2405

== ENCOUNTER 2021-06-25 13:30 | Emergency (ER) | payer MEDICAID, SELFPAY ==
[2021-06-25 13:31] VITALS: BP 117/104; PULSE 83; RESP 14; TEMP 36.4; O2SAT 98; BMI 37.8
--- NOTE | 2021-06-25 14:16 | CT_ITS ---
STUDY: CT ABDOMEN AND PELVIS WITH CONTRAST REASON FOR EXAM: Female, 35 years old. Right flank pain. History of prior ureteral repair following hysterectomy. RADIATION DOSAGE (If Supplied By Facility): CTDIvol = ( 15.21 ) mGy, DLP = ( 1787.26 ) mGycm TECHNIQUE: Transaxial images were obtained from the dome of the diaphragm to the symphysis pubis without oral contrast. IV 100mL Isovue-300 was administered. Sagittal and coronal images were reconstructed. Individualized dose optimization techniques were used for this CT. COMPARISON: Comparison is made with prior study dated 10/23/2019. FINDINGS: The visualized lung bases are unremarkable. The visualized portions of the heart are within normal limits. There is decreased attenuation of the liver consistent with steatosis. There are surgical clips in the gallbladder fossa consistent with a prior cholecystectomy. Normal spleen. Normal pancreas. Normal bilateral adrenal glands. Normal right kidney. Normal left kidney. Normal visualized stomach. Normal small intestine. Normal colon. There are surgical clips in the region of the appendix consistent with a prior appendectomy. Normal abdominal aorta. Normal inferior vena cava. Normal retroperitoneum. Normal urinary bladder. There is absence of the uterus consistent with a prior hysterectomy. There is a 5.7 cm x 2.7 cm septated cyst in the right adnexa. Normal abdominal wall. Normal osseous structures. CT/Abdomen/Pelvis W IV Cont ONLY IMPRESSION: 5.7 cm x 2.7 cm septated cyst in the right adnexa. Fatty infiltration of the liver. Electronically Signed: Thai Borges MD at 15:31 EDT ,
--- NOTE | 2021-06-25 14:18 | EX.ED.DYSGE1 ---
HPI <BRENT Wall - Last Filed: 06/25/21 16:08> History of Present Illness Chief Complaint: Flank Pain Narrative Narrative: 35-year-old female with history of kidney infections, anxiety, depression presents to the emergency department with concern of right flank pain, concern for pyelonephritis. Patient was seen here approximately 4 weeks ago and was placed on Bactrim for a urinary tract infection, patient states the Bactrim did upset her stomach, and she may have not followed through with antibiotic as she should. Patient presents today with worsening right-sided flank pain, feeling of nausea and vomiting. Patient states to have chills however no fevers. PFSH <BRENT Wall - Last Filed: 06/25/21 16:08> PFSH Medical History (Updated 06/25/21 @ 16:03 by BRENT Wall) Abdominal abscess Home Medications alprazolam 0.5 mg PO BID PRN 09/17/14 [History Last Taken 07/05/15 09:00] desvenlafaxine succinate 50 mg PO DAILY 05/25/21 [History Last Taken Unknown] cephalexin 500 mg PO Q6 #40 cap 06/25/21 [Rx Last Taken Unknown] hydrocodone-acetaminophen 1 tab PO Q6H PRN 3 Days #10 tab 06/25/21 [Rx Last Taken Unknown] Allergy/AdvReac Type Severity Reaction Status Date / Time oxycodone HCl [From Percocet] AdvReac Nausea Verified 06/25/21 13:33 Surgical History H/O: hysterectomy Social History (Updated 05/25/21 @ 16:[address] Salazar Cabrera MD) household members: significant other Smoking Status: Current every day smoker tobacco type: cigarettes substance use type: does not use ROS <BRENT Wall - Last Filed: 06/25/21 16:08> ROS ED ROS Narrative Constitutional: Negative for fever, weight loss or gain, weakness. Positive for chills Eyes: Negative for vision loss, vision change, double vision ENT: Negative for any hearing changes, ringing in the ears, discharge, pain Nose: Negative for any congestion, runny nose, sinus pain, allergies Throat: Negative for any sore throat, swelling, voice changes, Cardiovascular: Negative for any chest pain, tightness, palpitations, racing heartbeat Respiratory: Negative for any cough, sputum production, hemoptysis, shortness of breath, shortness of breath on exertion, Gastrointestinal: Negative for any abdominal pain, diarrhea, constipation, blood in stool, blood in vomit. Positive for nausea and vomiting, right-sided flank pain : Negative for any urinary frequency, incontinence, dysuria, retention, blood in urine Muscle skeletal: Negative for any muscle joint pain, stiffness, myalgias, arthralgias, neck pain, back pain Neurological: Negative for any headache, dizziness, syncope, numbness or tingling Skin: Negative for any rashes, lumps, itching, abrasions, lacerations Psychiatric: Negative for any depression, anxiety, stress, suicidal ideation, homicidal ideation Hematologic: Negative for any easy bruising, excessive bruising, easy bleeding Allergies: Negative for any eczema, hives, rash EXAM <BRENT Wall - Last Filed: 06/25/21 16:08> Physical Exam Const Vital Signs: 06/25/21 13:31 06/25/21 16:59 Temperature 97.5 F L Temperature Source Temporal Pulse Rate 83 88 Respiratory Rate 14 16 Blood Pressure 117/104 H Blood Pressure Mean 108 Pulse Ox 98 99 Oxygen Delivery Method Room Air Positive well nourished and well developed General Appearance ED: well developed HEENT Reports moist mucous membranes Eyes PERRL and EOMs intact bilaterally Neck no lymphadenopathy and supple Chest Wall inspection of chest normal Resp normal respiratory effort and clear to auscultation bilaterally Cardio regular rate, regular rhythm and no murmurs GI normal to inspection, nondistended, normoactive bowel sounds GI Narrative: Patient did have some tenderness to the right flank area. Palpation: soft Back/Spine Back/Spine Narrative: CVA tenderness to the right side. General Back: CVA tenderness Extremity normal to inspection Neuro oriented x3 and CN's II-XII intact bilaterally Sensorium / Orientation: alert Motor Exam: strength 5/5 throughout Psych mental status grossly normal <Dr. Eveline Mcintyre MD - Last Filed: 06/25/21 22:56> Physical Exam Const Vital Signs: 06/25/21 13:31 06/25/21 16:59 Temperature 97.5 F L Temperature Source Temporal Pulse Rate 83 88 Respiratory Rate 14 16 Blood Pressure 117/104 H Blood Pressure Mean 108 Pulse Ox 98 99 Oxygen Delivery Method Room Air [facility] <Chidi BurkBRENT thurman - Last Filed: 06/25/21 16:08> [facility] Narrative Medical decision making narrative: Patient presents to the emergency department with complaints of right flank pain, worsening urinary symptoms after completing a course of Bactrim. Patient appears to be in mild discomfort secondary to right flank pain however patient appears nontoxic, vital signs are stable. Patient did receive a full work-up, patient CBC shows a leukocytosis of 12.4, this is improvement from her previous visit at the end of April. Patient's urinalysis does show continued infection with 3+ bacteria, positive white blood cells leukocytes as well as positive nitrites. A urine culture was sent. Patient did receive a CT scan of the abdomen pelvis with IV contrast, this did show a 5.7 cm x 2.7cm septated cyst in the right axilla, also fatty infiltration of the liver, no other acute abnormality, negative for any hydronephrosis or kidney stone. I did research the patient's urine culture from last visit, Bactrim was resistant, patient will be treated with IV ceftriaxone 1 dose, patient be given Keflex 4 times a day for 10 days for treatment for pyelonephritis. Patient will also be given [place] for pain and instructed to follow-up outpatient. Patient strict return for any worsening back pain, fever chills nausea vomiting Lab Data Labs: Laboratory Results - last 24 hr 06/25/21 06/25/21 06/25/21 14:10 14:10 14:15 WBC 12.4 H RBC 4.67 Hgb 14.0 Hct 41.9 MCV 89.7 MCH 30.0 MCHC 33.4 RDW Std Deviation 43.9 RDW Coeff of [place] 13.3 Plt Count 321 MPV 9.2 Immature Gran % (Auto) 0.600 Neut % (Auto) 60.7 Lymph % (Auto) 31.0 [place] % (Auto) 5.4 Eos % (Auto) 1.9 Baso % (Auto) 0.4 Absolute Neuts (auto) 7.6 Absolute Lymphs (auto) 3.85 Nucleated RBC % 0 Sodium 138 Potassium 3.8 Chloride 107 Carbon Dioxide 27.0 Anion Gap 4 L BUN 10 Creatinine 0.75 Estim Creat Clear Calc 88.68 Est GFR (MDRD) Af Amer 111 Est GFR (MDRD) Non-Af 92 BUN/Creatinine Ratio 13.3 Glucose 98 Lactic Acid Calcium 9.1 Total Bilirubin 0.40 AST 13 L ALT 26 Alkaline Phosphatase 91 Total Protein 7.3 Albumin 3.6 Globulin 3.7 Albumin/Globulin Ratio 1.0 Lipase 63 L Urine Color Yellow Urine Clarity Sl. Cloudy Urine pH 7.0 Ur Specific [place] 1.010 Urine Protein Negative Urine Glucose (UA) Normal Urine Ketones Negative Urine Occult Blood 25 H Urine Nitrite Positive H Urine Bilirubin Negative Urine Urobilinogen Normal Ur Leukocyte Esterase 25 H Urine RBC 0-5 SEEN Urine WBC 5-10 SEEN Ur Squamous Epith Cells 5-10 SEEN Urine Bacteria 3+ Urine Mucus 0 SEEN 06/25/21 14:37 WBC RBC Hgb Hct MCV MCH MCHC RDW Std Deviation RDW Coeff of [place] Plt Count MPV Immature Gran % (Auto) Neut % (Auto) Lymph % (Auto) [place] % (Auto) Eos % (Auto) Baso % (Auto) Absolute Neuts (auto) Absolute Lymphs (auto) Nucleated RBC % Sodium Potassium Chloride Carbon Dioxide Anion Gap BUN Creatinine Estim Creat Clear Calc Est GFR (MDRD) Af Amer Est GFR (MDRD) Non-Af BUN/Creatinine Ratio Glucose Lactic Acid 0.7 Calcium Total Bilirubin AST ALT Alkaline Phosphatase Total Protein Albumin Globulin Albumin/Globulin Ratio Lipase Urine Color Urine Clarity Urine pH Ur Specific [place] Urine Protein Urine Glucose (UA) Urine Ketones Urine Occult Blood Urine Nitrite Urine Bilirubin Urine Urobilinogen Ur Leukocyte Esterase Urine RBC Urine WBC Ur Squamous Epith Cells Urine Bacteria Urine Mucus Radiography Diagnostic Testing: Clinical Impression(s) from Imaging Studies Abdomen/Pelvis CT 06/25/21 14:16 IMPRESSION: 5.7 cm x 2.7 cm septated cyst in the right adnexa. Fatty infiltration of the liver. Electronically Signed: Thai Borges MD at 15:31 EDT , <Dr. Eveline Mcintyre MD - Last Filed: 06/25/21 22:56> [facility] Lab Data Labs: Laboratory Results - last 24 hr 06/25/21 06/25/2122 14:10 14:10 14:15 WBC 12.4 H RBC 4.67 Hgb 14.0 Hct 41.9 MCV 89.7 MCH 30.0 MCHC 33.4 RDW Std Deviation 43.9 RDW Coeff of [place] 13.3 Plt Count 321 MPV 9.2 Immature Gran % (Auto) 0.600 Neut % (Auto) 60.7 Lymph % (Auto) 31.0 [place] % (Auto) 5.4 Eos % (Auto) 1.9 Baso % (Auto) 0.4 Absolute Neuts (auto) 7.6 Absolute Lymphs (auto) 3.85 Nucleated RBC % 0 Sodium 138 Potassium 3.8 Chloride 107 Carbon Dioxide 27.0 Anion Gap 4 L BUN 10 Creatinine 0.75 Estim Creat Clear Calc 88.68 Est GFR (MDRD) Af Amer 111 Est GFR (MDRD) Non-Af 92 BUN/Creatinine Ratio 13.3 Glucose 98 Lactic Acid Calcium 9.1 Total Bilirubin 0.40 AST 13 L ALT 26 Alkaline Phosphatase 91 Total Protein 7.3 Albumin 3.6 Globulin 3.7 Albumin/Globulin Ratio 1.0 Lipase 63 L Urine Color Yellow Urine Clarity Sl. Cloudy Urine pH 7.0 Ur Specific [place] 1.010 Urine Protein Negative Urine Glucose (UA) Normal Urine Ketones Negative Urine Occult Blood 25 H Urine Nitrite Positive H Urine Bilirubin Negative Urine Urobilinogen Normal Ur Leukocyte Esterase 25 H Urine RBC 0-5 SEEN Urine WBC 5-10 SEEN Ur Squamous Epith Cells 5-10 SEEN Urine Bacteria 3+ Urine Mucus 0 SEEN 06/25/21 14:37 WBC RBC Hgb Hct MCV MCH MCHC RDW Std Deviation RDW Coeff of [place] Plt Count MPV Immature Gran % (Auto) Neut % (Auto) Lymph % (Auto) [place] % (Auto) Eos % (Auto) Baso % (Auto) Absolute Neuts (auto) Absolute Lymphs (auto) Nucleated RBC % Sodium Potassium Chloride Carbon Dioxide Anion Gap BUN Creatinine Estim Creat Clear Calc Est GFR (MDRD) Af Amer Est GFR (MDRD) Non-Af BUN/Creatinine Ratio Glucose Lactic Acid 0.7 Calcium Total Bilirubin AST ALT Alkaline Phosphatase Total Protein Albumin Globulin Albumin/Globulin Ratio Lipase Urine Color Urine Clarity Urine pH Ur Specific [place] Urine Protein Urine Glucose (UA) Urine Ketones Urine Occult Blood Urine Nitrite Urine Bilirubin Urine Urobilinogen Ur Leukocyte Esterase Urine RBC Urine WBC Ur Squamous Epith Cells Urine Bacteria Urine Mucus Radiography Diagnostic Testing: Clinical Impression(s) from Imaging Studies Abdomen/Pelvis CT 06/25/21 14:16 IMPRESSION: 5.7 cm x 2.7 cm septated cyst in the right adnexa. Fatty infiltration of the liver. Electronically Signed: Thai Borges MD at 15:31 EDT , Treatment and Re-Evaluation Narrative: Patient seen and evaluated with [place]. I personally interviewed and examined the patient. I was involved in all aspects of patient's orders, interpretation of results, and treatment. Patient presents with recurrent and continued right flank pain. She has a history of frequent right kidney infections after a surgical injury to her ureter and bladder. Patient was seen recently and treated with Bactrim. Apparently this made her nauseated and she had difficulty completing the antibiotic course. Patient lying in bed in no acute distress. She is nontoxic-appearing. Head neck examination unremarkable. Heart is regular rate and rhythm. Lung sounds are clear. Abdomen is soft with mild diffuse tenderness. Right CVA tenderness is noted. Lab work reveals white count of 12.4. Chemistry studies unremarkable with normal renal function. Urinalysis shows 3+ bacteria with 5-10 white cells and positive nitrites. CT flank reveals a septated cyst on the right adnexa. Patient given a dose of Rocephin in the emergency room. Last urine culture reviewed and was sensitive to Keflex. She will be treated with Keflex which she has tolerated well in the past. Return instructions provided. Discharge Plan Triage Chief Complaint: Flank Pain ED Midlevel Provider: Chidi Yoo ED Provider: Eveline Mcintyre Dx/Rx/DC Orders Clinical Impression: Pyelonephritis Instructions: ED Pyelonephritis, Female (Adult) Prescriptions: New cephalexin 500 mg capsule 500 mg PO Q6 Qty: 40 RF: 0 hydrocodone-acetaminophen 5-325 mg tablet 1 tab PO Q6H PRN (Reason: pain) 3 Days Qty: 10 RF: 0 No Action alprazolam 0.5 MG tablet 0.5 mg PO BID PRN (Reason: Anxiety) RF: 0 desvenlafaxine succinate 50 mg tablet extended release 24 hr 50 mg PO DAILY RF: 0 Primary Care Provider: Magalis Curtis Referrals: Magalis Curtis MD [Primary Care Provider] - Activity Restrictions/Additional Instructions: Please follow-up with your doctor as outpatient. Please return here for any worsening symptoms. Please take the full dose of Keflex for 10 days. Print Language: Mongolian Disposition Disposition: Home, Self Care Discharge Date/Time: 06/25/21 17:01
[2021-06-25 14:27] LABS: Mucous, Urine 0 SEEN /hpf (<or=2+)
[2021-06-25 14:29] LABS: Absolute Lymphocyte Count 3.85 X10^3/uL (0.83-4.51); Absolute Neutrophil Count 7.6 X10^3/uL (2.0-7.7); Basophil# 0.05 X10^3/uL; Basophil% 0.4 % (0-1); Eosinophil# 0.24 X10^3/uL; Eosinophils% 1.9 % (0-5); Hematocrit 41.9 % (37-47); Lymphocyte # 3.85 X10^3/ul (0.83-4.51); Mean Corp Hgb Conc 33.4 g/dL (32-36); Mean Corpuscular Volume 89.7 fL (81-99); Mean Platelet Vol. 9.2 fl (6.2-12.0); Monocyte# 0.67 X10^3/uL; Monocyte% 5.4 % (0-10); NRBC Flagged by Analyzer 0 % (0-5); Neutrophil # 7.55 X10^3/uL (2.7-7.7); Neutrophil % 60.7 % (47-70); Platelet Count 321 K/mm3 (150-450); RBC Distribution Width CV 13.3 % (11.6-14.6); RBC Distribution Width SD 43.9 fl (35.1-43.9); Red Blood Count 4.67 M/mm3 (4.2-5.4); White Blood Count 12.4 K/mm3 (4.4-11.0)
[2021-06-25] MEDS: Morphine 4 MG/ML Syringe IV ×2 (14:29→15:54)
[2021-06-25] MEDS: Ondansetron 4 MG/2 ML Vial IV (14:29)
[2021-06-25] MEDS: 0.9% Normal Saline 1,000 ML 1000 ML IV (14:30)
[2021-06-25 14:33] LABS: Color, Urine Yellow (Yellow); Glucose, Dipstick Normal (Normal); Ketone-Dipstick Negative (Negative); Leukocyte Esterase-Dipstick 25 /ul (Negative); Nitrite-Dipstick Positive (Negative); Occult Blood-Urine 25 /ul (Negative); Protein-Dipstick Negative (Negative); Urine Bilirubin Dipstick Negative (Negative); Urine Clarity Sl. Cloudy (Clear); Urine Urobilinogen Normal (Normal)
[2021-06-25 14:45] LABS: AST(SGOT) 13 U/L (15-37); Alanine Aminotransfer ALT/SGPT 26 U/L (13-56); Albumin, Serum 3.6 g/dL (3.2-5.0); Alkaline Phosphatase 91 U/L (45-117); Anion Gap 4 (5-15); BUN 10 mg/dL (7-18); BUN/Creat Ratio 13.3 RATIO (10-20); Calcium,Total 9.1 mg/dL (8.5-10.1); Chloride 107 mmol/L (98-107); Creatinine, Serum 0.75 mg/dL (0.55-1.02); EST Glomerular Filtration Rate 92 mL/min (>60); Est Glom Filt Rate - Afr Amer 111 mL/min (>60); Estimated Creatinine Clearance 88.68 ml/min; Globulin 3.7 g/dL (2.2-4.2); Glucose 98 mg/dL (74-106); Lipase 63 U/L (73-393); Potassium 3.8 mmol/L (3.5-5.1); Protein, Total 7.3 g/dL (6.4-8.2); Sodium Level 138 mmol/L (136-145)
[2021-06-25 14:46] LABS: Bacteria 3+ /hpf (None Seen); Red Blood Cells-Urine 0-5 SEEN /hpf (0-5); Squamous Epithelial Cells - UA 5-10 SEEN /hpf (5-10); White Blood Cells 5-10 SEEN /hpf (0-5)
[2021-06-25 15:09] LABS: Lactic Acid 0.7 mmol/L (0.4-1.9)
[2021-06-25] MEDS: Ceftriaxone 1 GM/50 ML BAG IV (15:29)
[2021-06-25 16:59] VITALS: PULSE 88; RESP 16; O2SAT 99
== END 2021-06-25 17:01 | disposition home or self-care (01) ==
PROVIDERS: Nurse Practitioner; Emergency Provider Emergency Medicine; PCP Internal Medicine; Visit Provider Emergency Medicine
DX: N12 Tubulo-interstitial nephritis, not specified as acute or chronic (principal); F17.210 Nicotine dependence, cigarettes, uncomplicated; Z79.899 Other long term (current) drug therapy
CPT/HCPCS: 74177; 80053; 81001; 83605; 83690; 85025; 96365; 96366; 96375; 96376; 99282; J7030; Q9967; A4216; J2405

== ENCOUNTER 2022-04-01 13:23 | Emergency (ER) | payer MEDICAID, SELFPAY ==
[2022-04-01 13:24] VITALS: BP 118/97; PULSE 76; RESP 15; TEMP 36.2; O2SAT 97; BMI 39.4
[2022-04-01 13:30] VITALS: BP 118/97; PULSE 76; RESP 15; TEMP 36.2; O2SAT 97
--- NOTE | 2022-04-01 13:46 | ED.RN ---
PT AMBULATED INTO ER THIS MORNING BUT DECIDED NOT TO WAIT, WENT HOME AND CALLED EMS. WHEN ASKED TO PROVIDE A URINE SAMPLE PT AMBULATED TO THE BR BUT PT WAS UNABLE TO VOID. PTS FAMILY FOLLOWED THE [facility] TO THE ER IN PRIVATE VEHICLE.
[2022-04-01 14:04] LABS: Mucous, Urine 0 SEEN /hpf (<or=2+); Red Blood Cells-Urine 0 SEEN /hpf (0-5)
[2022-04-01 14:08] LABS: Color, Urine Yellow (Yellow); Glucose, Dipstick Normal (Normal); Ketone-Dipstick 15 mg/dl (Negative); Leukocyte Esterase-Dipstick 500 /ul (Negative); Nitrite-Dipstick Positive (Negative); Occult Blood-Urine 50 /ul (Negative); Protein-Dipstick 100 mg/dl (Negative); Specific Gravity, Urine 1.025 (1.002-1.030); Urine Bilirubin Dipstick Negative (Negative); Urine Clarity Sl. Cloudy (Clear); Urine Urobilinogen Normal (Normal)
[2022-04-01 14:19] LABS: White Blood Cells 0-5 SEEN /hpf (0-5)
[2022-04-01 14:20] LABS: Squamous Epithelial Cells - UA 10-25 SEEN /hpf (5-10)
[2022-04-01 14:22] LABS: Yeast-Urine RARE /hpf (None Seen)
--- NOTE | 2022-04-01 15:28 | EDS_ITS ---
HPI History of Present Illness Chief Complaint: Flank Pain Detail of Chief Complaint: Right flank pain with fever and chills Informant: patient and spouse/S.O. Onset/Context/Timing Onset: Yesterday Context: Sudden Onset Timing: Continuous Quality: Pain Location: Right flank Current Severity: Mild Maximum Severity: Moderate Worsened by: Movement and palpation Relieved by: Nothing Associated Symptoms Associated Symptoms: Subjective fever, chills, dry heaves and GI symptoms Narrative Narrative: Patient 36-year-old female who had complication status post laparoscopic hysterectomy requiring reconstructive urologic surgery. She has history of recurrent urinary tract infections. She presents because of subjective fever with chills and nausea with dry heaves. Patient also endorses mild nasal congestion, and diarrhea. She denies exposure to anyone that has been ill. She denies headache, visual, ocular auditory symptoms. Denies photophobia, neck pain or neck stiffness. She does endorse slight cough that is nonproductive. Denies chest discomfort. She denies hematuria or dysuria. Prior similar symptoms: Yes Recent Illness/Hospitalization: Yes PFSH PFSH Medical History Abdominal abscess Home Medications alprazolam 0.5 mg tablet 0.5 mg PO BID PRN Anxiety 09/17/14 [History Last Taken 07/05/15 09:00] desvenlafaxine succinate 50 mg tablet,extended release 24 hr 50 mg PO DAILY 05/25/21 [History Last Taken Unknown] ondansetron 4 mg disintegrating tablet 4 mg PO Q8H PRN PRN Nausea #10 tabs 04/01/22 [Rx Last Taken Unknown] Allergy/AdvReac Type Severity Reaction Status Date / Time oxycodone HCl [From Percocet] AdvReac Nausea Verified 04/01/22 13:27 Surgical History H/O: hysterectomy Social History household members: significant other Smoking Status: Current every day smoker tobacco type: cigarettes substance use type: does not use ROS ROS ED Constitutional Constitutional ED: Reports chills, fever(s) and subjective; Denies sweats or weight loss Eyes Eyes: Denies blurry vision, change in vision or diplopia ENT ENT ED: Reports rhinorrhea; Denies ear pain or sore throat Cardiovascular Cardiovascular: Denies chest pain, orthopnea, palpitations, paroxysmal nocturnal dyspnea or racing heartbeat Respiratory/Chest Respiratory/Chest: Reports cough; Denies dyspnea, dyspnea on exertion, orthopnea or paroxysmal nocturnal dyspnea Gastrointestinal Gastrointestinal: Reports abdominal pain, diarrhea, nausea and vomiting; Denies constipation or melena Genitourinary Genitourinary ED: Reports urinary frequency; Denies dysuria or hematuria Musculoskeletal Musculoskeletal: Denies arthralgias, back pain, myalgias or neck pain Integumentary Denies Abrasions or rash Neurologic Neurologic: Denies headache(s), paresthesias or weakness Endocrine Endocrinology: Denies cold intolerance, heat intolerance or polydipsia Hematologic/Lymphatic Hematologic/Lymphatic: Reports systems reviewed and no addt'l complaints, except as documented EXAM Physical Exam Const Vital Signs: 04/01/22 13:24 04/01/22 13:30 04/01/22 15:40 Temperature 97.2 F L 97.2 F L 98.2 F Temperature Source Temporal Oral Oral Pulse Rate 76 76 68 Respiratory Rate 15 15 18 Blood Pressure 118/97 H 118/97 H 98/53 L Blood Pressure Mean 104 104 68 Pulse Ox 97 97 97 Oxygen Delivery Method Room Air Room Air Room Air Positive well nourished, well developed and obese General Appearance ED: well developed and pallor; Negative for cyanotic, diaphoretic or NAD Nutritional Appearance: obese HEENT Reports moist mucous membranes HEENT Narrative: Head is atraumatic normocephalic. Ears normal. Nares patent. Uvula midline. No erythema or exudate posterior pharynx. Eyes PERRL and EOMs intact bilaterally General Eye ED: Negative for pale conjunctiva or scleral icterus Neck no lymphadenopathy, supple and no JVD Chest Wall inspection of chest normal and palpation of chest normal Resp normal respiratory effort and clear to auscultation bilaterally Cardio regular rate, regular rhythm, S1 normal heart sound, S2 normal heart sound and no murmurs GI normal to inspection, nondistended, normoactive bowel sounds, non-distended and no masses; Negative for non-tender or hepatosplenomegaly GI Narrative: There is pain to palpation midclavicular line to the posterior axillary line on the right. There is no bruising noted. There is no rash noted Back/Spine General Back: CVA tenderness right Cervical Spine: Negative for cervical spine tenderness Thoracic Spine / Upper Back: Negative for thoracic spinal tenderness Lumbar Spine / Lower Back: Negative for lumbar spinal tenderness Extremity normal to inspection General Extremety ED: Negative for edema or tenderness General Extremity: Negative for edema Neuro oriented x3, CN's II-XII intact bilaterally and no sensory deficits noted Sensorium / Orientation: alert Motor Exam: strength 5/5 throughout Psych Psych Narrative: Affect is flat Skin no rashes or lesions noted, no wounds and skin turgor normal General Skin Exam: pallor; Negative for jaundice MDM MDM MDM Narrative Medical decision making narrative: Light of his history need to rule out urologic cause and specifically infection. This may also represent a viral gastroenteritis with her complaint of nausea vomiting and diarrhea. Per triage protocol UA was obtained. In addition UA CBC was obtained assess white count rule out anemia since patient appears pale. Patient will panel to assess renal function. Patient was treated with Zofran for her nausea and morphine for her pain. Urine reveals a contaminated specimen. Since patient complained of fever chills and respiratory and GI symptoms suspect the elevated white count is due to viral illness. Treatment is symptomatic. Patient be discharged home. Lab Data Attestation: I reviewed the patient's lab results. Lab results narrative: Urinalysis reveals a contaminated specimen. There is 25 epithelial cells. There is no pyuria or bacteria noted. Macro was positive for protein, ketones, occult blood and leukoesterase as well as nitrites. Labs: Laboratory Results - last 24 hr 04/01/22 04/01/22 04/01/22 13:54 15:45 15:45 WBC 14.2 H RBC 4.85 Hgb 14.6 Hct 43.9 MCV 90.5 MCH 30.1 MCHC 33.3 RDW Std Deviation 43.3 RDW Coeff of [place]hell 13.1 Plt Count 321 MPV 8.7 Immature Gran % (Auto) 0.800 Neut % (Auto) 64.9 Lymph % (Auto) 27.0 Smith % (Auto) 5.1 Eos % (Auto) 1.8 Baso % (Auto) 0.4 Absolute Neuts (auto) 9.2 H Absolute Lymphs (auto) 3.85 Nucleated RBC % 0 Sodium 137 Potassium 3.6 Chloride 108 H Carbon Dioxide 26.0 Anion Gap 3 L BUN 12 Creatinine 0.64 Estim Creat Clear Calc 102.92 Est GFR (MDRD) Af Amer 134 Est GFR (MDRD) Non-Af 111 BUN/Creatinine Ratio 18.9 Glucose 96 Calcium 9.6 Urine Color Yellow Urine Clarity Sl. Cloudy Urine pH 6.0 Ur Specific [place] 1.025 Urine Protein 100 H Urine Glucose (UA) Normal Urine Ketones 15 H Urine Occult Blood 50 H Urine Nitrite Positive H Urine Bilirubin Negative Urine Urobilinogen Normal Ur Leukocyte Esterase 500 H Urine RBC 0 SEEN Urine WBC 0-5 SEEN Ur Squamous Epith Cells 10-25 SEEN Urine Bacteria Not Reportable Urine Mucus 0 SEEN Urine Yeast RARE Discharge Plan Triage Chief Complaint: Flank Pain ED Provider: Salazar Cabrera Dx/Rx/DC Orders Clinical Impression: Systemic viral illness, Fever and chills, Combined abdominal pain, vomiting, a nd diarrhea Instructions: ED Viral Syndrome (Adult) Prescriptions: New ondansetron [ondansetron] 4 mg tablet,disintegrating 4 mg PO Q8H PRN PRN (Reason: Nausea) Qty: 10 0RF No Action alprazolam 0.5 MG tablet 0.5 mg PO BID PRN (Reason: Anxiety) Label Comments: anxiety desvenlafaxine succinate 50 mg tablet extended release 24 hr 50 mg PO DAILY Primary Care Provider: Magalis Curtis Referrals: Magalis Curtis MD [Primary Care Provider] -
[2022-04-01] MEDS: Morphine 4 MG/ML Syringe IV (15:38)
[2022-04-01] MEDS: Ondansetron 4 MG/2 ML Vial IV (15:38)
[2022-04-01 15:40] VITALS: BP 98/53; PULSE 68; RESP 18; TEMP 36.8; O2SAT 97
[2022-04-01 15:57] LABS: Absolute Lymphocyte Count 3.85 X10^3/uL (0.83-4.51); Absolute Neutrophil Count 9.2 X10^3/uL (2.0-7.7); Basophil# 0.06 X10^3/uL; Basophil% 0.4 % (0-1); Eosinophil# 0.25 X10^3/uL; Eosinophils% 1.8 % (0-5); Hematocrit 43.9 % (37-47); Hemoglobin 14.6 g/dL (12.0-15.0); Lymphocyte # 3.85 X10^3/ul (0.83-4.51); Mean Corp Hgb Conc 33.3 g/dL (32-36); Mean Corpuscular Hgb 30.1 pg (27.0-32.0); Mean Corpuscular Volume 90.5 fL (81-99); Mean Platelet Vol. 8.7 fl (6.2-12.0); Monocyte# 0.72 X10^3/uL; Monocyte% 5.1 % (0-10); NRBC Flagged by Analyzer 0 % (0-5); Neutrophil # 9.24 X10^3/uL (2.7-7.7); Neutrophil % 64.9 % (47-70); Platelet Count 321 K/mm3 (150-450); RBC Distribution Width CV 13.1 % (11.6-14.6); RBC Distribution Width SD 43.3 fl (35.1-43.9); Red Blood Count 4.85 M/mm3 (4.2-5.4); White Blood Count 14.2 K/mm3 (4.4-11.0)
[2022-04-01 16:35] LABS: Anion Gap 3 (5-15); BUN 12 mg/dL (7-18); BUN/Creat Ratio 18.9 RATIO (10-20); Calcium,Total 9.6 mg/dL (8.5-10.1); Chloride 108 mmol/L (98-107); Creatinine, Serum 0.64 mg/dL (0.55-1.02); EST Glomerular Filtration Rate 111 mL/min (>60); Est Glom Filt Rate - Afr Amer 134 mL/min (>60); Estimated Creatinine Clearance 102.92 ml/min; Glucose 96 mg/dL (74-106); Potassium 3.6 mmol/L (3.5-5.1); Sodium Level 137 mmol/L (136-145)
[2022-04-01 17:15] VITALS: BP 120/74; PULSE 78; RESP 16
== END 2022-04-01 17:15 | disposition home or self-care (01) ==
PROVIDERS: Emergency Provider Emergency Medicine; PCP Internal Medicine; Visit Provider Emergency Medicine
DX: R10.9 Unspecified abdominal pain (principal); B34.9 Viral infection, unspecified; R11.2 Nausea with vomiting, unspecified; F17.210 Nicotine dependence, cigarettes, uncomplicated; R19.7 Diarrhea, unspecified; R35.0 Frequency of micturition; E66.9 Obesity, unspecified
CPT/HCPCS: 80048; 81001; 85025; 96374; 96375; 99285; J7050; J2405

== ENCOUNTER 2022-05-10 13:18 | Emergency (ER) | payer MEDICAID, SELFPAY ==
[2022-05-10 13:19] VITALS: BP 129/106; PULSE 83; RESP 14; TEMP 36.4; O2SAT 100; BMI 36.7
--- NOTE | 2022-05-10 13:57 | EDS_ITS ---
HPI History of Present Illness Chief Complaint: Lower Extremity Injury Detail of Chief Complaint: Left knee pain and swelling Informant: patient Narrative Narrative: Patient presents the emergency department with complaint of pain and swelling in the left knee that she has had for about a week. Patient does not recall any injury. She had some mild discomfort when she went to bed 1 night and then woke up with pain and inability to bend the knee. Patient was seen at urgent care and had some x-rays and was told she had some spurring and some arthritis in the knee and maybe it was not lined up properly. Patient was given an Frankie wrap and referral to orthopedics which she cannot see until next week. Patient denies any fevers. She continues to have pain. She denies recent travel or surgery. She denies chest pain or shortness of breath. Patient states that she was also given prednisone but that really has not helped her pain. [facility] Medical History Abdominal abscess Home Medications alprazolam 0.5 mg tablet 0.5 mg PO BID PRN Anxiety 09/17/14 [History Last Taken 07/05/15 09:00] desvenlafaxine succinate 50 mg tablet,extended release 24 hr 50 mg PO DAILY 05/25/21 [History Last Taken Unknown] ondansetron 4 mg disintegrating tablet 4 mg PO Q8H PRN PRN Nausea #10 tabs 04/01/22 [Rx Last Taken Unknown] hydrocodone-acetaminophen 5-325mg 5mg-325mg 1 tab PO Q4H PRN PRN Pain 2 days #14 TABLETS 05/10/22 [Rx Last Taken Unknown] Allergy/AdvReac Type Severity Reaction Status Date / Time oxycodone HCl [From Percocet] AdvReac Nausea Verified 05/10/22 13:28 Surgical History H/O: hysterectomy Social History household members: significant other Smoking Status: Current every day smoker tobacco type: cigarettes substance use type: does not use ROS ROS ED Review of Systems ROS Unobtainable: other Constitutional Constitutional ED: Reports lethargy; Denies chills, fever(s), sweats or weight loss Eyes Eyes: Denies blurry vision, change in vision or diplopia ENT ENT ED: Denies rhinorrhea or sore throat Cardiovascular Cardiovascular: Denies chest pain, orthopnea or racing heartbeat Respiratory/Chest Respiratory/Chest: Denies cough, dyspnea, dyspnea on exertion, orthopnea or sput um Gastrointestinal Gastrointestinal: Denies abdominal pain, diarrhea, nausea or vomiting Genitourinary Genitourinary ED: Denies dysuria, hematuria or urinary frequency Musculoskeletal Musculoskeletal: Reports other Details: Left knee pain and swelling ; Denies arthralgias, back pain, myalgias or neck pain Integumentary Denies abscess, Abrasions or rash Neurologic Neurologic: Denies headache(s) or weakness Psychiatric Psychiatric: Denies anxiety, depression or suicidal thoughts Endocrine Endocrinology: Denies polydipsia, polyphagia or polyuria Hematologic/Lymphatic Hematologic/Lymphatic: Denies easy bleeding, easy bruising or lymphadenopathy Allergic/Immunologic Allergic/Immunologic ED: Denies mouth swelling, tongue swelling or urticaria EXAM Physical Exam Const Vital Signs: 05/10/22 13:19 Temperature 97.6 F L Temperature Source Temporal Pulse Rate 83 Respiratory Rate 14 Blood Pressure 129/106 H Blood Pressure Mean 113 Pulse Ox 100 Oxygen Delivery Method Room Air Positive well nourished and well developed General Appearance ED: well developed and NAD HEENT Reports TM's clear and moist mucous membranes normocephalic and atraumatic; Negative for trauma or tenderness Tympanic Membrane ED: Yes TM's clear Eyes PERRL and EOMs intact bilaterally General Eye ED: Negative for pale conjunctiva or scleral icterus Neck no lymphadenopathy, supple and no JVD General: Negative for tenderness Chest Wall inspection of chest normal and palpation of chest normal Chest: Negative for tenderness Resp normal respiratory effort and clear to auscultation bilaterally Effort and Inspection: Negative for respiratory distress or pain with movement Auscultation: Negative for rhonchi, wheezes or diminished lung sounds Cardio regular rate, regular rhythm, S1 normal heart sound, S2 normal heart sound and no murmurs Peripheral Pulses: pulses 2+ throughout GI normal to inspection, nondistended, normoactive bowel sounds, soft to palpation, non-tender, non-distended and no masses Back/Spine no CVA tenderness and no thoracic nor lumbar tenderness Extremity Extremity Narrative: Left knee-patient does have diffuse soft tissue swelling with knee effusion. Patient also with some swelling of the calf and also thigh. Limited range of motion secondary to pain. There is no erythema or warmth. She is neurovascular intact distally. General Extremety ED: Negative for edema General Extremity: Negative for edema Neuro oriented x3, CN's II-XII intact bilaterally, no sensory deficits noted and gait normal Sensorium / Orientation: awake, alert, oriented to person, oriented to place and oriented to time Motor Exam: strength 5/5 throughout and strength abnormal Psych mental status grossly normal Skin no rashes or lesions noted and no wounds MDM MDM MDM Narrative Medical decision making narrative: Patient presents with left knee pain for about a week without known significant injury although she cannot be certain she did not twisted moving some furniture around. Patient has had x-rays which did not show any fractures per her recollection as I do not have access to them. Complaining of continuing pain. Patient to continues to complain of swelling despite taking prednisone which did not help her pain. She has an appointment with orthopedics Dr. Prieto in 4 da . I did obtain a CBC which showed a slightly elevated white count of 12.3 for which she is currently being evaluated as she chronically has an elevated WBC count and she has also just been on prednisone. Her sed rate was actually normal at 7. She had some mild elevation in her C-reactive protein of 15.6. Clinically I do not feel she has an infected joint. We discussed options of possibly obtaining a fluid analysis from arthrocentesis of the left knee however she does not want to have this performed as she could hardly tolerate the venous Doppler study and does not want to have the procedure performed. She understands that I can not definitively rule out a septic joint without fluid aspiration although my suspicion for this is very low. I will attempt to contact orthopedic surgeon that she will be following up with to discuss case further although he is not on-call today. Patient will be placed in a knee immobilizer and given a prescription for few [place] for pain. Patient does have an effusion and in the differential would be knee sprain with hemarthrosis versus inflammatory arthropathy versus septic arthritis which I feel is less likely. Lab Data Attestation: I reviewed the patient's lab results. Labs: Laboratory Results - last 24 hr 05/10/22 05/10/22 14:10 14:10 WBC 12.3 H RBC 4.42 Hgb 13.3 Hct 40.1 MCV 90.7 MCH 30.1 MCHC 33.2 RDW Std Deviation 43.7 RDW Coeff of [place]hell 13.1 Plt Count 273 MPV 8.9 Immature Gran % (Auto) 0.300 Neut % (Auto) 59.9 Lymph % (Auto) 31.7 [place] % (Auto) 5.4 Eos % (Auto) 2.3 Baso % (Auto) 0.4 Absolute Neuts (auto) 7.4 Absolute Lymphs (auto) 3.90 Nucleated RBC % 0 ESR 7 C-React Prot Ext Range 15.60 H Discharge Plan Triage Chief Complaint: Lower Extremity Injury ED Provider: Josie Roche Dx/Rx/DC Orders Clinical Impression: Acute pain of left knee Instructions: ED Knee Pain of Uncertain Cause Prescriptions: New hydrocodone-acetaminophen [hydrocodone-acetaminophen] 5-325 mg tablet 1 tab PO Q4H PRN PRN (Reason: Pain) 2 Days Qty: 14 0RF No Action alprazolam 0.5 MG tablet 0.5 mg PO BID PRN (Reason: Anxiety) Label Comments: anxiety desvenlafaxine succinate 50 mg tablet extended release 24 hr 50 mg PO DAILY ondansetron [ondansetron] 4 mg tablet,disintegrating 4 mg PO Q8H PRN PRN (Reason: Nausea) Qty: 10 0RF Primary Care Provider: Magalis Curtis Referrals: Shivam Monreal DO [Med Staff - Active Staff] - 3-5 Days Magalis Curtis MD [Primary Care Provider] - Disposition Disposition: Home, Self Care
--- NOTE | 2022-05-10 13:57 | VDLE_ITS ---
Reason For Study: LLE PAIN Procedure LEFT This is a venous duplex using B-mode, color GSV is normal. flow and spectral Doppler. CFV is compressible, spontaneous, phasic, Exam performed portable in ED. competent, and demonstrates normal The study was technically difficult. augmentation. PT's left leg is very painful when performing FV is compressible, spontaneous, phasic, compressions. competent and demonstrates normal A preliminary report was called and/or faxed augmentation. to ED. POP V is compressible, spontaneous, phasic, competent and demonstrates normal augmentation. T/P Trunk is compressible. PTV is compressible. LT PerV is compressible. VL/Venous Duplex US, Unilateral Interpretation Summary There is no evidence of left lower extremity deep vein thrombosis. Left great s aphenous vein appears patent and compressible segmentally. Technically difficult Ordering Physician: Josie Roche Referring Physician: Magalis Curtis Performed By: Sharita Morales, GALINA, RVT
[2022-05-10 14:23] LABS: Erythrocyte Sedimentation Rate 7 mm/hr (0-30)
[2022-05-10 14:25] LABS: Absolute Neutrophil Count 7.4 X10^3/uL (2.0-7.7); Basophil# 0.05 X10^3/uL; Basophil% 0.4 % (0-1); Eosinophil# 0.28 X10^3/uL; Eosinophils% 2.3 % (0-5); Hematocrit 40.1 % (37-47); Hemoglobin 13.3 g/dL (12.0-15.0); Lymphocyte % 31.7 % (19-41); Mean Corp Hgb Conc 33.2 g/dL (32-36); Mean Corpuscular Hgb 30.1 pg (27.0-32.0); Mean Corpuscular Volume 90.7 fL (81-99); Mean Platelet Vol. 8.9 fl (6.2-12.0); Monocyte# 0.66 X10^3/uL; Monocyte% 5.4 % (0-10); NRBC Flagged by Analyzer 0 % (0-5); Neutrophil # 7.38 X10^3/uL (2.7-7.7); Neutrophil % 59.9 % (47-70); Platelet Count 273 K/mm3 (150-450); RBC Distribution Width CV 13.1 % (11.6-14.6); RBC Distribution Width SD 43.7 fl (35.1-43.9); Red Blood Count 4.42 M/mm3 (4.2-5.4); White Blood Count 12.3 K/mm3 (4.4-11.0)
== END 2022-05-10 16:01 | disposition home or self-care (01) ==
PROVIDERS: Emergency Provider Emergency Medicine; PCP Internal Medicine; Visit Provider Emergency Medicine
DX: M25.562 Pain in left knee (principal); F17.210 Nicotine dependence, cigarettes, uncomplicated
CPT/HCPCS: 85025; 85652; 86140; 93971; 99282

== ENCOUNTER → 2022-05-26 | Outpatient (CLI) | payer MEDICAID, SELFPAY ==
--- NOTE | 2022-05-26 09:15 | MRI_ITS ---
STUDY: MRI LEFT KNEE REASON FOR EXAM: Female, 36 years old. Left knee pain. TECHNIQUE: Standardized fat and water weighted pulse sequences were obtained in all 3 orthogonal planes. COMPARISON: Left knee x-rays dated May 17, 2022. FINDINGS: Normal medial meniscus. Mild thinning of the articular cartilage of the medial femorotibial compartment (coronal series 7 images 12-22). Normal medial femoral condyle and tibial plateau. Normal medial collateral ligamentous complex (MCL). Normal distal semimembranosus, gracilis and semitendinosus tendons. Normal lateral meniscus. Mild thinning of the articular cartilage of the lateral femorotibial compartment (coronal series 7 images 12-19). Normal lateral femoral condyle and tibial plateau. Normal proximal tibiofibular articulation. Normal lateral collateral (fibular) ligament. Normal popliteus tendon. Normal biceps femoris tendon. Normal anterior cruciate ligament (ACL). Normal posterior cruciate ligament (PCL). Normal congruent patellofemoral articulation. Normal hyaline cartilage of the patellofemoral compartment. Normal medial and lateral patellar retinaculum. Normal quadriceps tendon. Normal patellar tendon. Normal Hoffa''s fat pad. Moderate-sized joint effusion with medial and lateral plicae (axial series 3 images 12-30). The soft tissues are unremarkable. The otherwise visualized osseous structures are unremarkable. MRI/Lower Ext Joint Only (Routine) IMPRESSION: Mild thinning of the articular cartilage of the medial and lateral femorotibial compartments. Moderate-sized joint effusion with medial and lateral plicae. No other abnormality. Electronically Signed: Marvel Peterson, at 13:21 EST ,
== END | disposition home or self-care (01) ==
LOC: MRI 09:02
PROVIDERS: PCP Internal Medicine; Referring Provider Orthopaedic Surgery; Visit Provider Orthopaedic Surgery
DX: M23.92 Unspecified internal derangement of left knee (principal)
CPT/HCPCS: 73721